=== PATIENT | male | born 1960 | race American Indian/Alaskan Native ===

== ENCOUNTER 2021-10-11 19:32 | Emergency (ER) | payer SELFPAY ==
--- NOTE | 2021-10-11 21:41 | Emergency Department Report ---
ED Altered Mental Status HPI - General Chief Complaint: Altered Mental Status Stated Complaint: ETOH Time Seen by Provider: 10/11/21 21:23 Source: EMS Mode of arrival: Stretcher Limitations: Altered Mental Status - History of Present Illness Initial Comments: 61-year-old male patient with known documented medical history presents to the emergency department with "altered mental status" after being found at his grandson's house oriented x2. According to the grandson's report to EMS, patient has been drinking alcohol for the last 3 days, and began began appearing altered yesterday. On exam, patient is alert, and oriented to person and place but not to situation and time. When asked why he is here, he says that it is because "I have to pee". Patient, currently has no complaints. Unknown if this has occurred previously. - Related Data Allergies Allergy/AdvReac Type Severity Reaction Status Date / Time No Known Allergies Allergy Unverified 10/11/21 21:17 ED Review of Systems ROS: Stated complaint: ETOH Other details as noted in HPI Comment: Unobtainable due to pts medical conditions (Difficult to assess secondary to probable intoxication) Constitutional: denies: chills, fever Eyes: denies: eye pain, eye discharge, vision change ENT: denies: ear pain, throat pain Respiratory: denies: cough, shortness of breath, wheezing Cardiovascular: denies: chest pain, palpitations Endocrine: no symptoms reported Gastrointestinal: denies: abdominal pain, nausea, diarrhea Genitourinary: denies: urgency, dysuria Musculoskeletal: denies: back pain, joint swelling, arthralgia Skin: denies: rash, lesions Neurological: denies: headache, weakness, paresthesias Psychiatric: denies: anxiety, depression Hematological/Lymphatic: denies: easy bleeding, easy bruising ED Past Medical Hx - Past Medical History Previous Medical History?: No - Surgical History Past Surgical History?: No - Social History Smoking Status: Current Every Day Smoker Substance Use Type: Alcohol ED Physical Exam - General Limitations: Altered Mental Status (probable intoxication) General appearance: alert, in no apparent distress, obese - Head Head exam: Present: atraumatic, normocephalic - Eye Eye exam: Present: normal appearance, PERRL, EOMI - ENT ENT exam: Present: normal exam, mucous membranes moist - Neck Neck exam: Present: normal inspection - Respiratory Respiratory exam: Present: normal lung sounds bilaterally. Absent: respiratory distress, wheezes - Cardiovascular Cardiovascular Exam: Present: regular rate, tachycardia. Absent: systolic murmur, diastolic murmur, rubs, gallop - GI/Abdominal GI/Abdominal exam: Present: soft, normal bowel sounds. Absent: distended, tenderness, guarding, rebound - Rectal Rectal exam: Present: deferred - Extremities Exam Extremities exam: Present: normal inspection, pedal edema, other (Well-healed abrasion to the right knee, no tenderness). Absent: calf tenderness - Back Exam Back exam: Present: normal inspection - Neurological Exam Neurological exam: Present: alert, altered, CN II-XII intact - Psychiatric Psychiatric exam: Present: normal affect, normal mood, other - Skin Skin exam: Present: warm, dry, intact, normal color. Absent: rash ED Course Vital Signs 10/11/21 10/11/21 10/11/21 19:34 21:04 21:07 Temperature 97.0 F L 98 F Pulse Rate 95 H 88 91 H Respiratory 14 20 21 Rate Blood Pressure 145/82 Blood Pressure 145/70 [Left] O2 Sat by Pulse 98 98 98 Oximetry 10/11/21 10/11/21 10/11/21 21:16 21:18 21:19 Temperature 97.6 F Pulse Rate 90 88 Respiratory 18 15 Rate Blood Pressure 166/93 Blood Pressure 166/93 [Left] O2 Sat by Pulse 97 99 100 Oximetry 10/11/21 10/11/21 10/11/21 21:30 21:46 22:00 Temperature Pulse Rate 91 H 90 Respiratory 19 20 Rate Blood Pressure 166/93 166/93 160/92 Blood Pressure [Left] O2 Sat by Pulse 96 97 97 Oximetry 10/11/21 10/11/21 10/11/21 22:16 22:30 22:45 Temperature Pulse Rate 89 91 H 84 Respiratory 15 19 14 Rate Blood Pressure 160/92 162/93 Blood Pressure [Left] O2 Sat by Pulse 98 99 97 Oximetry 10/11/21 10/11/21 10/11/21 23:00 23:16 23:30 Temperature Pulse Rate 86 88 80 Respiratory 20 13 13 Rate Blood Pressure 161/92 166/93 162/93 Blood Pressure [Left] O2 Sat by Pulse 100 96 97 Oximetry 08/14/22 08/15/22 08/15/22 23:45 00:00 00:16 Temperature Pulse Rate 84 78 110 H Respiratory 12 14 21 Rate Blood Pressure 148/87 148/87 148/87 Blood Pressure [Left] O2 Sat by Pulse 99 96 96 Oximetry 10/12/21 10/12/21 10/12/21 00:30 00:46 01:00 Temperature Pulse Rate 97 H 96 H 91 H Respiratory 18 25 H 20 Rate Blood Pressure 148/87 148/87 148/87 Blood Pressure [Left] O2 Sat by Pulse 98 94 98 Oximetry 10/12/21 10/12/21 10/12/21 01:16 01:30 01:45 Temperature Pulse Rate 87 88 102 H Respiratory 22 19 19 Rate Blood Pressure 148/87 151/87 161/87 Blood Pressure [Left] O2 Sat by Pulse 96 99 92 Oximetry 10/12/21 10/12/21 10/12/21 02:00 02:16 02:30 Temperature Pulse Rate 114 H 113 H 91 H Respiratory 22 29 H 19 Rate Blood Pressure 161/87 161/87 161/87 Blood Pressure [Left] O2 Sat by Pulse 98 98 97 Oximetry 10/12/21 10/12/21 10/12/21 02:45 03:00 03:16 Temperature Pulse Rate 95 H 99 H 86 Respiratory 35 H 20 18 Rate Blood Pressure 155/84 155/84 155/84 Blood Pressure [Left] O2 Sat by Pulse 95 98 98 Oximetry 10/12/21 10/12/21 10/12/21 03:30 03:45 04:00 Temperature Pulse Rate 88 89 86 Respiratory 11 L 18 17 Rate Blood Pressure 155/84 141/82 141/82 Blood Pressure [Left] O2 Sat by Pulse 96 94 97 Oximetry 10/12/21 10/12/21 10/12/21 04:16 04:30 04:45 Temperature Pulse Rate 83 88 Respiratory 16 17 Rate Blood Pressure 141/82 141/82 160/82 Blood Pressure [Left] O2 Sat by Pulse 97 95 94 Oximetry 10/12/21 10/12/21 10/12/21 05:00 05:16 05:30 Temperature Pulse Rate 89 92 H Respiratory 16 14 12 Rate Blood Pressure 141/82 160/82 160/82 Blood Pressure [Left] O2 Sat by Pulse 96 Oximetry 10/12/21 10/12/21 10/12/21 05:46 06:00 06:16 Temperature Pulse Rate 84 83 83 Respiratory 14 16 14 Rate Blood Pressure 160/82 160/82 160/82 Blood Pressure [Left] O2 Sat by Pulse Oximetry - Reevaluation(s) Reevaluation #1: 10/12/21 00:15 Patient's alcohol level is 0.32, but patient's orientation is improving. I will repeat the blood alcohol level at 2 AM, and then discharge patient home if the blood alcohol level is below 200 and the patient is able to ambulate and get a ride home. Reevaluation #2: 10/12/21 06:48 Patient is fully alert and oriented, states that he is ready to be discharged home. His father will come to pick him up. Patient seen ambulating in the emergency department - Lab Data Result diagrams: 10/11/21 22:47 10/11/21 22:47 Lab Results 10/11/21 10/11/21 10/11/21 Range/Units 21:32 22:47 22:47 WBC 9.8 (4.5-11.0) K/mm3 RBC 3.85 (3.65-5.03) M/mm3 Hgb 12.9 (11.8-15.2) gm/dl Hct 37.8 (35.5-45.6) % MCV 98 H (84-94) fl MCH 34 H (28-32) pg MCHC 34 (32-34) % RDW 15.3 H (13.2-15.2) % Plt Count 307 (140-440) K/mm3 Lymph % (Auto) 38.5 H (13.4-35.0) % [place] % (Auto) 4.8 (0.0-7.3) % Eos % (Auto) 1.6 (0.0-4.3) % Baso % (Auto) 1.4 (0.0-1.8) % Lymph # (Auto) 3.8 (1.2-5.4) K/mm3 [place] # (Auto) 0.5 (0.0-0.8) K/mm3 Eos # (Auto) 0.2 (0.0-0.4) K/mm3 Baso # (Auto) 0.1 (0.0-0.1) K/mm3 Seg Neutrophils % 53.7 (40.0-70.0) % Seg Neutrophils # 5.2 (1.8-7.7) K/mm3 PT 15.4 H (12.2-14.9) Sec. INR 1.09 (0.87-1.13) APTT 34.3 (24.2-36.6) Sec. Sodium (137-145) mmol/L Potassium (3.6-5.0) mmol/L Chloride (98-107) mmol/L Carbon Dioxide (22-30) mmol/L Anion Gap mmol/L BUN (9-20) mg/dL Creatinine (0.8-1.3) mg/dL Estimated GFR ml/min BUN/Creatinine Ratio % Glucose (75-100) mg/dL POC Glucose 237 H (70-105) mg/dL Calcium (8.4-10.2) mg/dL Total Bilirubin (0.1-1.2) mg/dL AST (5-40) units/L ALT (7-56) units/L Alkaline Phosphatase (35-129) units/L Ammonia (25-60) umol/L Total Protein (6.3-8.2) g/dL Albumin (3.9-5) g/dL Albumin/Globulin Ratio % Urine Color (Yellow) Urine Turbidity (Clear) Urine pH (5.0-7.0) Ur Specific [place] (1.003-1.030) Urine Protein (Negative) mg/dL Urine Glucose (UA) (Negative) mg/dL Urine Ketones (Negative) mg/dL Urine Blood (Negative) Urine Nitrite (Negative) Ur Reducing Substances Urine Bilirubin (Negative) Urine Ictotest Urine Urobilinogen (<2.0) mg/dL Ur Leukocyte Esterase (Negative) Urine WBC (Auto) (0.0-6.0) /HPF Urine RBC (Auto) (0.0-6.0) /HPF U Epithel Cells (Auto) (0-13.0) /HPF Urine Opiates Screen Urine Methadone Screen Ur Barbiturates Screen Ur Phencyclidine Scrn Ur Amphetamines Screen U Benzodiazepines Scrn Urine Cocaine Screen U Marijuana (THC) Screen Drugs of Abuse Note Plasma/Serum Alcohol (0-0.07) % 10/11/21 10/11/21 10/11/21 Range/Units 22:47 22:47 22:47 WBC (4.5-11.0) K/mm3 RBC (3.65-5.03) M/mm3 Hgb (11.8-15.2) gm/dl Hct (35.5-45.6) % MCV (84-94) fl MCH (28-32) pg MCHC (32-34) % RDW (13.2-15.2) % Plt Count (140-440) K/mm3 Lymph % (Auto) (13.4-35.0) % [place] % (Auto) (0.0-7.3) % Eos % (Auto) (0.0-4.3) % Baso % (Auto) (0.0-1.8) % Lymph # (Auto) (1.2-5.4) K/mm3 [place] # (Auto) (0.0-0.8) K/mm3 Eos # (Auto) (0.0-0.4) K/mm3 Baso # (Auto) (0.0-0.1) K/mm3 Seg Neutrophils % (40.0-70.0) % Seg Neutrophils # (1.8-7.7) K/mm3 PT (12.2-14.9) Sec. INR (0.87-1.13) APTT (24.2-36.6) Sec. Sodium 137 (137-145) mmol/L Potassium 4.0 (3.6-5.0) mmol/L Chloride 99.5 (98-107) mmol/L Carbon Dioxide 23 (22-30) mmol/L Anion Gap 19 mmol/L BUN 5 L (9-20) mg/dL Creatinine 0.6 L (0.8-1.3) mg/dL Estimated GFR > 60 ml/min BUN/Creatinine Ratio 8 % Glucose 235 H (75-100) mg/dL POC Glucose (70-105) mg/dL Calcium 8.7 (8.4-10.2) mg/dL Total Bilirubin 0.30 (0.1-1.2) mg/dL AST 25 (5-40) units/L ALT 16 (7-56) units/L Alkaline Phosphatase 71 (35-129) units/L Ammonia 34.0 (25-60) umol/L Total Protein 7.6 (6.3-8.2) g/dL Albumin 3.4 L (3.9-5) g/dL Albumin/Globulin Ratio 0.8 % Urine Color (Yellow) Urine Turbidity (Clear) Urine pH (5.0-7.0) Ur Specific [place] (1.003-1.030) Urine Protein (Negative) mg/dL Urine Glucose (UA) (Negative) mg/dL Urine Ketones (Negative) mg/dL Urine Blood (Negative) Urine Nitrite (Negative) Ur Reducing Substances Urine Bilirubin (Negative) Urine Ictotest Urine Urobilinogen (<2.0) mg/dL Ur Leukocyte Esterase (Negative) Urine WBC (Auto) (0.0-6.0) /HPF Urine RBC (Auto) (0.0-6.0) /HPF U Epithel Cells (Auto) (0-13.0) /HPF Urine Opiates Screen Urine Methadone Screen Ur Barbiturates Screen Ur Phencyclidine Scrn Ur Amphetamines Screen U Benzodiazepines Scrn Urine Cocaine Screen U Marijuana (THC) Screen Drugs of Abuse Note Plasma/Serum Alcohol 0.32 H (0-0.07) % 10/12/21 10/12/21 10/12/21 Range/Units 00:35 00:35 02:59 WBC (4.5-11.0) K/mm3 RBC (3.65-5.03) M/mm3 Hgb (11.8-15.2) gm/dl Hct (35.5-45.6) % MCV (84-94) fl MCH (28-32) pg MCHC (32-34) % RDW (13.2-15.2) % Plt Count (140-440) K/mm3 Lymph % (Auto) (13.4-35.0) % [place] % (Auto) (0.0-7.3) % Eos % (Auto) (0.0-4.3) % Baso % (Auto) (0.0-1.8) % Lymph # (Auto) (1.2-5.4) K/mm3 [place] # (Auto) (0.0-0.8) K/mm3 Eos # (Auto) (0.0-0.4) K/mm3 Baso # (Auto) (0.0-0.1) K/mm3 Seg Neutrophils % (40.0-70.0) % Seg Neutrophils # (1.8-7.7) K/mm3 PT (12.2-14.9) Sec. INR (0.87-1.13) APTT (24.2-36.6) Sec. Sodium (137-145) mmol/L Potassium (3.6-5.0) mmol/L Chloride (98-107) mmol/L Carbon Dioxide (22-30) mmol/L Anion Gap mmol/L BUN (9-20) mg/dL Creatinine (0.8-1.3) mg/dL Estimated GFR ml/min BUN/Creatinine Ratio % Glucose (75-100) mg/dL POC Glucose (70-105) mg/dL Calcium (8.4-10.2) mg/dL Total Bilirubin (0.1-1.2) mg/dL AST (5-40) units/L ALT (7-56) units/L Alkaline Phosphatase (35-129) units/L Ammonia (25-60) umol/L Total Protein (6.3-8.2) g/dL Albumin (3.9-5) g/dL Albumin/Globulin Ratio % Urine Color Yellow (Yellow) Urine Turbidity Slightly cloudy (Clear) Urine pH 5.0 (5.0-7.0) Ur Specific [place] 1.025 (1.003-1.030) Urine Protein <15 mg/dl (Negative) mg/dL Urine Glucose (UA) Negative (Negative) mg/dL Urine Ketones Negative (Negative) mg/dL Urine Blood Negative (Negative) Urine Nitrite Negative (Negative) Ur Reducing Substances Not Reportable Urine Bilirubin Negative (Negative) Urine Ictotest Not Reportable Urine Urobilinogen < 2.0 (<2.0) mg/dL Ur Leukocyte Esterase Negative (Negative) Urine WBC (Auto) < 1.0 (0.0-6.0) /HPF Urine RBC (Auto) 1.0 (0.0-6.0) /HPF U Epithel Cells (Auto) < 1.0 (0-13.0) /HPF Urine Opiates Screen Presumptive negative Urine Methadone Screen Presumptive negative Ur Barbiturates Screen Presumptive negative Ur Phencyclidine Scrn Presumptive negative Ur Amphetamines Screen Presumptive negative U Benzodiazepines Scrn Presumptive negative Urine Cocaine Screen Presumptive negative U Marijuana (THC) Screen Presumptive negative Drugs of Abuse Note Disclamer Plasma/Serum Alcohol 0.26 H (0-0.07) % Critical care attestation.: If time is entered above; I have spent that time in minutes in the direct care of this critically ill patient, excluding procedure time. ED Disposition Clinical Impression: Alcohol intoxication Qualifiers: Complication of substance-induced condition: uncomplicated Qualified Code(s): F10.920 - Alcohol use, unspecified with intoxication, uncomplicated Disposition: 01 HOME / SELF CARE / HOMELESS Is pt being admited?: No Condition: Stable Instructions: Alcohol Intoxication Time of Disposition: 06:47
--- NOTE | 2021-10-11 22:35 | Cat Scan Report ---
CT HEAD WITHOUT CONTRAST INDICATION / CLINICAL INFORMATION: Altered Mental Status. TECHNIQUE: All CT scans at this location are performed using CT dose reduction for ALARA by means of automated exposure control. COMPARISON: None available. FINDINGS: HEMORRHAGE: None. EXTRA-AXIAL SPACES: Moderately prominent likely related to cortical atrophy. VENTRICULAR SYSTEM: Moderately enlarged likely related to central atrophy. CEREBRAL PARENCHYMA: There are periventricular hypodensities consistent with microvascular ischemic c hange. No acute territorial infarct. MIDLINE SHIFT / HERNIATION: None. CEREBELLUM / BRAINSTEM: No significant abnormality. ORBITS: Normal as visualized SOFT TISSUES: No significant abnormality. SKULL: No significant abnormality. PARANASAL SINUSES / MASTOID AIR CELLS: Normal as visualized ADDITIONAL FINDINGS: None. IMPRESSION: 1. No acute intracranial abnormality in the setting of senescent changes. Signer Name: Magnus Peters DO Signed: 10/11/2021 10:31 PM Workstation Name: [id number]
[2021-10-11 23:02] LABS: Basophils # (Auto) 0.1 K/mm3 (0.0-0.1); Basophils % (Auto) 1.4 % (0.0-1.8); Eosinophils # (Auto) 0.2 K/mm3 (0.0-0.4); Eosinophils % (Auto) 1.6 % (0.0-4.3); Hematocrit 37.8 % (35.5-45.6); Hemoglobin 12.9 gm/dl (11.8-15.2); Lymphocytes # (Auto) 3.8 K/mm3 (1.2-5.4); Lymphocytes % (Auto) 38.5 % (13.4-35.0); Mean Corpuscular HGB Conc 34 % (32-34); Mean Corpuscular Volume 98 fl (84-94); Monocytes # (Auto) 0.5 K/mm3 (0.0-0.8); Monocytes % (Auto) 4.8 % (0.0-7.3); Platelet Count 307 K/mm3 (140-440); Red Blood Count 3.85 M/mm3 (3.65-5.03); Red Cell Distribution Width 15.3 % (13.2-15.2)
[2021-10-11 23:12] LABS: INR 1.09 (0.87-1.13)
[2021-10-11 23:13] LABS: Partial Thromboplastin Time 34.3 Sec. (24.2-36.6)
[2021-10-11 23:20] LABS: Alanine Aminotransferase 16 units/L (7-56); Albumin 3.4 g/dL (3.9-5); Blood Urea Nitrogen 5 mg/dL (9-20); Calcium 8.7 mg/dL (8.4-10.2); Hemolysis Index 3
[2021-10-11 23:23] LABS: BUN/Creatinine Ratio 8
[2021-10-12 00:55] LABS: Amphetamine Screen,Urine PRESUMPTIVE NEGATIVE; Benzodiazepines Screen,Urine PRESUMPTIVE NEGATIVE; Cannabinoid Screen,Urine PRESUMPTIVE NEGATIVE; Cocaine Screen,Urine PRESUMPTIVE NEGATIVE; Methadone Screen,Urine PRESUMPTIVE NEGATIVE; Opiate Screen,Urine PRESUMPTIVE NEGATIVE
[2021-10-12 00:58] LABS: WBC,Urine < 1.0 /HPF (0.0-6.0)
[2021-10-12 01:00] LABS: Bilirubin,Urine Negative (Negative); Blood,Urine Negative (Negative); Color,Urine Yellow (Yellow); Protein,Urine <15 mg/dL mg/dL (Negative); Urobilinogen,Urine < 2.0 mg/dL (<2.0)
[2021-10-12 07:43] VITALS: BP 134/78
--- NOTE | 2021-10-12 09:09 | Electrocardiograph Report ---
[facility] Test Date: 2021-10-11 Test Time: 22:06:55 Pat Name: IRVING RAMIREZ Department: Room: Gender: M Bar Host/Hostess: WALT : 1960 Requested By: MANISHA LAZAR Order Number: [id number] Reading MD: Taj Stafford Measurements Intervals [place] Rate: 87 P: 62 AR: 188 QRS: -22 QRSD: 168 T: 46 QT: 455 QTc: 549 Interpretive Statements Sinus rhythm prolonged 1st degree av block Right bundle branch block No previous ECG available for comparison Electronically Signed On 10-12-2021 9:09:17 EDT by Taj Stafford
== END 2021-10-12 07:42 | disposition home or self-care (01) ==
LOC: ED 19:32
DX: F10.129 Alcohol abuse with intoxication, unspecified (principal); F17.200 Nicotine dependence, unspecified, uncomplicated; R79.1 Abnormal coagulation profile; Z79.899 Other long term (current) drug therapy; Y90.9 Presence of alcohol in blood, level not specified
CPT/HCPCS: 36415; 70450; 80053; 80307; 80320; 81001; 82140; 82962; 85025; 85610; 85730; 93005; 99284; G0480